=== PATIENT | female | born 1955 | race Caucasian/White ===

== ENCOUNTER 2016-08-24 17:41 | Emergency (ER) | payer OTHER ==
[2016-08-24 17:45] VITALS: BP 123/74; PULSE 105; TEMP 97.7; BMI 20.9
--- NOTE | 2016-08-24 18:28 | PDOC ---
History of Present Illness - General Chief Complaint: Blood Sugar Problem Stated Complaint: PCP SENT/BLOOD SUGAR PROBLEM Time Seen by Provider: 08/24/16 18:02 Past History - Past Medical History Allergies/Adverse Reactions: Allergies Allergy/AdvReac Type Severity Reaction Status Date / Time No Known Allergies Allergy Verified 08/24/16 17:45 Home Medications: Ambulatory Orders Glimepiride 4 mg PO BID tablet 01/26/14 Metformin HCl [Glucophage -] 1,000 mg PO BIDI tablet 02/08/16 Paroxetine HCl [Paxil -] 10 mg PO DAILY #0 02/08/16 Naph,Mb-Db/K pH,Mbdb [PHOS-NaK PACKET -] 1 packet GT BID #2 pow MDD 2 04/23/16 Anemia: Yes Diabetes: Yes HTN: Yes - Psycho/Social/Smoking Cessation Hx Anxiety: No Suicidal Ideation: No Smoking History: Never smoked Information on smoking cessation initiated: No Hx Alcohol Use: No Drug/Substance Use Hx: No Substance Use Type: None *Physical Exam - Vital Signs Last Vital Signs Temp Pulse Resp BP Pulse Ox 97.7 F 105 H 18 123/74 100 08/24/16 17:42 08/24/16 17:42 08/24/16 17:42 08/24/16 17:42 08/24/16 17:42 ED Treatment Course - LABORATORY CBC & Chemistry Diagram: 08/24/16 18:36 08/24/16 18:36 *DC/Admit/Observation/Transfer Diagnosis at time of Disposition: Diabetes mellitus Qualifiers: Diabetes mellitus type: type 2 Diabetes mellitus complication status: without complication Diabetes mellitus rn long term care insulin use: unspecified rn long term care insulin use status Qualified Code(s): E11.9 - Type 2 diabetes mellitus without complications - Discharge Dispostion Disposition: HOME Condition at time of disposition: Stable - Referrals Referrals: Memo Peña [Primary Care Provider] - - Patient Instructions Printed Discharge Instructions: DI for Hyperglycemia -- Adult - Post Discharge Activity Work/School Note: Back to Work Addendum entered and electronically signed by Daniel Cruz RES 08/31/16 11:13: Progress Note - Progress Note Progress Note: 61 yo with h/o diabetes type II presented to the ED with blood sugar problem. She's sent by her PMD who found her blood glu being elevated on a lab test. Recently she went to see a professor of communication arts who put her on predinsone for a month. Otherwise she denies fever, chills, sob, chest pain, urinary or bowel symptoms. Repeat blood glucose was 269. Pt will be discharged to follow up with her PMD Physical Exam Vital Sings: Vital Signs Temperature 97.7 F 08/24/16 17:42 Pulse Rate 105 H 08/24/16 17:42 Respiratory Rate 18 08/24/16 17:42 Blood Pressure 123/74 08/24/16 17:42 O2 Sat by Pulse Oximetry (%) 100 08/24/16 17:42 Constitutional: Yes: No Distress HENT: Yes: Atraumatic, Normocephalic Neck: Yes: WNL Cardiovascular: Yes: WNL Respiratory: Yes: WNL Gastrointestinal: Yes: WNL Renal/: Yes: WNL Musculoskeletal: Yes: WNL Labs: CBC, BMP 08/24/16 18:36 08/24/16 18:36
--- NOTE | 2016-08-24 18:54 | PDOC ---
Attending Attestation - Resident Resident Name: Daniel Cruz - ED Attending Attestation I have performed the following: I have examined & evaluated the patient, The case was reviewed & discussed with the resident, I agree w/resident's findings & plan, Exceptions are as noted - HPI HPI: 61 yo F type II DM presents with elevated glucose. She has been on prednisone for the past few weeks, and since then, her blood sugar has been difficult to control. Denies dysuria, weakness, fever, cp, SOB. - Physicial Exam PE: GENERAL: Awake, alert, and fully oriented, in no acute distress HEAD: No signs of trauma EYES: PERRLA, EOMI, sclera anicteric, conjunctiva clear ENT: Auricles normal inspection, hearing grossly normal, nares patent, oropharynx clear without exudates. Moist mucosa NECK: Normal ROM, supple, no lymphadenopathy, JVD, or masses LUNGS: Breath sounds equal, clear to auscultation bilaterally. No wheezes, and no crackles HEART: Regular rate and rhythm, normal S1 and S2, no murmurs, rubs or gallops ABDOMEN: Soft, nontender, normoactive bowel sounds. No guarding, no rebound. No masses EXTREMITIES: Normal range of motion, no edema. No clubbing or cyanosis. No cords, erythema, or tenderness NEUROLOGICAL: Cranial nerves II through XII grossly intact. Normal speech, normal gait SKIN: Warm, Dry, normal turgor, no rashes or lesions noted. - Medical Decision Making Pt endorsed to Dr. Herrera. Awaiting full set of labs. Receiving IV fluids. Will likely need endocrinology eval as an outpatient to treat hyperglycemia while she is on prednisone.
[2016-08-24 19:04] LABS: BASOPHIL 0.1 % (0-2.0); EOSINOPHIL 1.5 % (0-4.5); MCHC 32.2 g/dl (32.0-36.0); MEAN CELL VOLUME 74.7 fl (80-96); MEAN PLT VOLUME 7.5 fl (7.5-11.1); NEUTROPHILS 78.2 % (42.8-82.8); PLATELET COUNT 496 K/MM3 (134-434); RDW 16.5 % (11.6-15.6); WHITE BLOOD COUNT 8.9 K/mm3 (4.0-10.0)
[2016-08-24 19:18] LABS: URINE APPEARANCE CLEAR; URINE BILIRUBIN NEGATIVE (NEGATIVE); URINE COLOR LTYELLOW; URINE GLUCOSE (UA) 3+ (NEGATIVE); URINE KETONE NEGATIVE (NEGATIVE); URINE LEUK ESTERASE NEGATIVE (NEGATIVE); URINE NITRITE NEGATIVE (NEGATIVE); URINE PROTEIN NEGATIVE (NEGATIVE); URINE UROBILINOGEN NEGATIVE E.U./dl (0.2-1.0)
[2016-08-24 19:29] LABS: ALBUMIN 3.2 g/dl (3.4-5.0); ANION GAP 11 (8-16); CALCIUM 9.4 mg/dL (8.5-10.1); CO2 29 mmol/L (21-32); COCKROFT - GAULT 58.8965; CREATININE 0.7 mg/dL (0.55-1.02); GLUCOSE,RANDOM 269 mg/dL (74-106); SGPT/ALT 14 U/L (12-78)
[2016-08-24 19:30] LABS: ALK PHOS 59 U/L (45-117); BILIRUBIN,TOTAL 0.3 mg/dL (0.2-1.0); TOT PROT 7.4 g/dl (6.4-8.2)
[2016-08-24 19:35] LABS: SGOT/AST 13 U/L (15-37)
[2016-08-24 19:54] LABS: URINE BLOOD 1+ (NEGATIVE)
--- NOTE | 2016-08-24 20:16 | PDOC ---
*Physical Exam - Vital Signs Last Vital Signs Temp Pulse Resp BP Pulse Ox 97.7 F 105 H 18 123/74 100 08/24/16 17:42 08/24/16 17:42 08/24/16 17:42 08/24/16 17:42 08/24/16 17:42 ED Treatment Course - LABORATORY CBC & Chemistry Diagram: 08/24/16 18:36 08/24/16 18:36 - ADDITIONAL ORDERS Additional order review: Laboratory Results 08/24/16 08/24/16 08/24/16 18:42 18:36 18:20 Sodium 132 L Potassium 4.5 Chloride 92 L Carbon Dioxide 29 Anion Gap 11 BUN 16 D Creatinine 0.7 Creat Clearance w eGFR > 60 POC Glucometer [phone] Random Glucose 269 H D Calcium 9.4 Total Bilirubin 0.3 D AST 13 L D ALT 14 Alkaline Phosphatase 59 Total Protein 7.4 Albumin 3.2 L Urine Color Ltyellow Urine Appearance Clear Urine pH 7.0 Ur Specific Rudyard 1.013 Urine Protein Negative Urine Glucose (UA) 3+ H Urine Ketones Negative Urine Blood 1+ H Urine Nitrite Negative Urine Bilirubin Negative Urine Urobilinogen Negative Ur Leukocyte Esterase Negative 08/24/16 08/24/16 18:36 18:20 RBC 4.22 MCV 74.7 L MCHC 32.2 RDW 16.5 H MPV 7.5 Neutrophils % 78.2 Lymphocytes % 15.4 Monocytes % 4.8 Eosinophils % 1.5 Basophils % 0.1 POC Glucometer [phone] Medical Decision Making - Medical Decision Making 08/24/16 20:15 blood glucose is 269. Calcium 9.4. Pt will be discharged to follow up with her pcp. Advised to continue with her medications as directed. *DC/Admit/Observation/Transfer Diagnosis at time of Disposition: Diabetes mellitus - Discharge Dispostion Disposition: HOME Condition at time of disposition: Stable Admit: No - Referrals Referrals: Memo Peña [Primary Care Provider] - - Patient Instructions Printed Discharge Instructions: DI for Hyperglycemia -- Adult - Post Discharge Activity Work/School Note: Back to Work
[2016-08-24 20:41] LABS: URINE MUCUS RARE; URINE RBC 4 /hpf (0-3); URINE WBC 1 /hpf (3-5)
== END 2016-08-24 20:24 | disposition home or self-care (01) ==
LOC: JER 17:41
DX: E11.9 Type 2 diabetes mellitus without complications (principal); I10 Essential (primary) hypertension; D64.9 Anemia, unspecified
CPT/HCPCS: 36415; 80053; 81003; 81015; 83036; 85025; 99282-25

== ENCOUNTER 2022-05-20 10:41 | Day surgery (SDC) | payer OTHER ==
[~2022-05-20 10:41] MED LIST: FERRIC CARBOXYMALTOSE 750 MG in SODIUM CHLORIDE 250 ML IVPB ONE
[2022-05-20 17:41] VITALS: TEMP 97.7
[2022-05-20 17:48] VITALS: BP 155/85; PULSE 69; RESP 20
== END 2022-05-20 13:00 | disposition home or self-care (01) ==
LOC: JINFUSION 10:41
PROVIDERS: ATTEND Internal Medicine Hematology & Oncology
PROC: 3E033GC Introduction of Other Therapeutic Substance into Peripheral Vein, Percutaneous Approach (ICD-10-PCS; principal; 2022-05-20)
DX: D50.9 Iron deficiency anemia, unspecified (principal)
CPT/HCPCS: 96365; J1439

== ENCOUNTER 2022-05-27 10:50 | Day surgery (SDC) | payer OTHER ==
[2022-05-27 17:45] VITALS: BP 144/61; PULSE 83; RESP 20; TEMP 98.1
== END 2022-05-27 12:25 | disposition home or self-care (01) ==
LOC: JONCNONCHE 10:50
PROVIDERS: ATTEND Internal Medicine Hematology & Oncology
PROC: 3E033GC Introduction of Other Therapeutic Substance into Peripheral Vein, Percutaneous Approach (ICD-10-PCS; principal; 2022-05-27)
DX: D50.9 Iron deficiency anemia, unspecified (principal)
CPT/HCPCS: 96365; J1439